=== PATIENT | male | born 1965 | race Caucasian/White ===

== ENCOUNTER → 2017-03-16 | Outpatient (CLI) | payer OTHER ==
[2017-03-16 16:43] LABS: HCT 45.1 % (39.0-53.0); MCH 29.1 pg (25.0-35.0); MCHC 33.2 g/dL (31.0-37.0); MCV 87.6 fL (80.0-100.0); Mean Platelet Volume 8.8; Platelet Count 237 k/uL (150-450); RBC 5.15 m/uL (4.30-5.90); RDW 13.7 % (11.5-15.5); WBC 8.8 k/uL (3.8-10.6)
[2017-03-16 16:44] LABS: Appearance,Urine Clear (Clear); Bacteria,Urine Rare /hpf; Bilirubin,Urine Negative (Negative); Blood,Urine Negative (Negative); Color,Urine Light Yellow; Glucose,Urine (UA) Negative (Negative); Ketones,Urine Negative (Negative); Leukocyte Esterase,Urine Trace (Negative); Nitrite,Urine Negative (Negative); PH, Urine 6.5 (5.0-8.0); Protein,Urine Negative (Negative); Specific Gravity,Urine 1.006 (1.001-1.035); Squamous Epithelial Cell,Urine <1 /hpf (0-4); Urobilinogen,Urine <2.0 mg/dL (<2.0); WBC,Urine 3 /hpf (0-5)
[2017-03-16 16:51] LABS: INR 1.2 (<1.2); Partial Thromboplastin Time 24.9 sec (22.0-30.0); Prothrombin Time 11.3 sec (9.0-12.0)
[2017-03-16 17:19] LABS: ALT 36 U/L (21-72); AST 24 U/L (17-59); Albumin 4.1 g/dL (3.5-5.0); Alkaline Phosphatase 79 U/L (38-126); Anion Gap 11 mmol/L; Blood Urea Nitrogen 16 mg/dL (9-20); Calcium 9.2 mg/dL (8.4-10.2); Carbon Dioxide 25 mmol/L (22-30); Chloride 104 mmol/L (98-107); Glucose 89 mg/dL (74-99); Potassium 4.3 mmol/L (3.5-5.1); Sodium 140 mmol/L (137-145); Total Bilirubin 0.5 mg/dL (0.2-1.3)
== END | disposition home or self-care (01) ==
LOC: LABPAT 15:44
PROVIDERS: ATTEND Orthopaedic Surgery
DX: Z01.818 Encounter for other preprocedural examination (principal); Z01.812 Encounter for preprocedural laboratory examination; M16.12 Unilateral primary osteoarthritis, left hip
CPT/HCPCS: 80053; 81001; 85027; 85610; 85730; 87070; 93005

== ENCOUNTER 2017-03-28 06:26 | Inpatient (IN) | payer OTHER ==
[2017-03-21 18:01] VITALS: BMI 29.5
[~2017-03-28 06:26] MED LIST: ACETAMINOPHEN TAB 500 MG TAB PO ONE; LACTATED RINGERS 1,000 ML IV SCH; LIDOCAINE 1% 20 ML VIAL (10MG/ML) FOR IV START INTRADERMA PRN; MELOXICAM 7.5 MG TAB PO ONE; ONDANSETRON 4 MG/2 ML VIAL IVP ONE; ROPIVACAINE 246.25 MG, EPINEPHrine 0.5 MG, KETOROLAC 30 MG, cloNIDine HCL/PF 80 MCG, WA... MISCELLANE ONE; TRANEXAMIC ACID 1,000 MG in SODIUM CHLORIDE 0.9% 50 ML IVPB ONE; ceFAZolin IN SWFI 2 GM/20 ML SYRINGE IVP ONE
[2017-03-28] MEDS: HYDROmorphone 0.5 MG/0.5 ML SYRINGE IVP PRN ×3 (07:12→11:18)
[2017-03-28] MEDS ORDERED: HYDROcodone/APAP 5-325MG 1 EACH TAB PO PRN (07:30)
[2017-03-28] MEDS ORDERED: NALOXONE 0.4 MG/ML 1 ML VIAL IV PRN (07:30)
[2017-03-28] MEDS ORDERED: HYDROmorphone 4 MG/ML 1 ML SYRINGE IVP PRN ×3 (07:30)
[2017-03-28] MEDS ORDERED: MAGNESIUM HYDROXIDE 2,400 MG/10 ML CUP PO PRN (07:30)
[2017-03-28] MEDS ORDERED: hydrOXYzine PAMOATE 25 MG CAP PO PRN (07:30)
[2017-03-28] MEDS ORDERED: DIAZEPAM 5 MG TAB PO PRN ×2 (07:30)
[2017-03-28] MEDS ORDERED: ePHEDrine SULFATE/0.9% NACL/PF 50 MG/5 ML SYRINGE IV ONE (07:32)
[2017-03-28] MEDS ORDERED: PROPOFOL 10 MG/ML 20 ML VIAL IV ONE (07:32)
[2017-03-28] MEDS ORDERED: SODIUM CHLORIDE 0.9% 100 ML BAG ONE (07:32)
[2017-03-28] MEDS ORDERED: SUCCINYLCHOLINE CHLORIDE 100 MG/5 ML SYR IV ONE (07:32)
[2017-03-28] MEDS ORDERED: ROCURONIUM BROMIDE 10 MG/ML 10 ML VIAL IV ONE (07:32)
[2017-03-28] MEDS ORDERED: SODIUM CHLORIDE 0.9% IRRIG 1,000 ML BTL IRRIGATION ONE (07:32)
[2017-03-28] MEDS ORDERED: GLYCOPYRROLATE 0.2 MG/ML 2 ML VIAL ONE (07:32)
[2017-03-28] MEDS ORDERED: fentaNYL (PF) 50 MCG/ML 2 ML AMP ONE (07:32)
[2017-03-28] MEDS ORDERED: PHENYLEPHRINE-0.9% NACL SYG 1 MG/10 ML SYRINGE ONE (07:32)
[2017-03-28] MEDS ORDERED: TRANEXAMIC ACID 1,000 MG/10 ML VIAL ONE (07:32)
[2017-03-28] MEDS ORDERED: HYDROmorphone (PF) 1 MG/ML ONE (07:32)
[2017-03-28] MEDS ORDERED: LIDOCAINE 1% INJ 10MG/ML (20 ML MDV) ONE (07:32)
[2017-03-28] MEDS ORDERED: ceFAZolin 1,000 MG in SODIUM CHLORIDE 0.9% 1,000 ML IRRIGATION ONE (07:32)
[2017-03-28] MEDS ORDERED: MIDAZOLAM 2 MG/2 ML VIAL ONE (07:32)
[2017-03-28] MEDS ORDERED: NEOSTIGMINE 1 MG/ML 10 ML VIAL ONE (07:32)
[2017-03-28] MEDS ORDERED: HEPARIN SODIUM,PORCINE 10,000 UNIT/ML 1 ML VIAL ONE (07:32)
[2017-03-28] MEDS ORDERED: LACTATED RINGERS 1,000 ML IV ONE (08:45)
--- NOTE | 2017-03-28 09:11 | P.OP ---
Date of Procedure: 03/28/17 Preoperative Diagnosis: Severe osteoarthritis left hip Postoperative Diagnosis: Severe osteoarthritis left hip Procedure(s) Performed: Left total hip arthroplasty with a direct anterior approach Implants: Swartz and nephew Polarstem size 3 standard Swartz & Nephew R3, 3 hole acetabular shell, 52 mm Swartz & Nephew reflection 6.5 mm cancellus screw, 20 mm 2 Swartz & Nephew R3, XLPE 20 acetabular liner Swartz & Nephew Oxinium femoral head 36 m, +0 All components were press-fit. The articulation is Oxinium on polyethylene. Anesthesia: GETA, spinal Surgeon: Timo Gill Pulmonary Specialist #1: Kamryn Garland Estimated Blood Loss (ml): 300 (122 mL returned with Cell Saver) Pathology: other (Femoral head) Condition: stable Disposition: PACU Indications for Procedure: After failure of conservative treatment we discussed the surgical and nonsurgical treatment options at length. Patient wishes to proceed with a total hip arthroplasty with a direct anterior approach. Complications specific to this procedure were discussed at length, including but not limited to infection, leg length discrepancy, dislocation, and nerve injury. Patient is aware of all these complications and informed consent was obtained Operative Findings: The operative findings are consistent with severe osteoarthritis of the left hip Description of Procedure: Patient was seen and evaluated in the preoperative area, consent was reviewed, and the surgical site was marked with a skin marker. Patient was then brought to the operating room and given prophylactic antibiotics intravenously. 1 g of Tranexamic acid was also given. A spinal anesthetic was administered by the anesthesia department. It appeared that the spinal anesthetic did not fully function, so a general anesthetic was administered. The patient was then placed on the [place] table with the bony prominences well-padded. The hip area was then prepped and draped in usual sterile fashion. A universal timeout was then performed, which confirmed the patient's name, surgical site, ALLERGIES, and procedure being performed. Next the incision site was located at 1 cm distal and 1 cm lateral to the anterior superior iliac spine. The skin and subcutaneous tissues were sharply incised. Incision was carefully dissected down to the fascia overlying the tensor fascia patrick muscle. This fascia was then incised in line with the incision. Next, using blunt finger dissection, the tensor fascia patrick muscle was dissected off its investing fascia. The muscle was then carefully retracted laterally with a cobra retractor over the lateral neck of the femur. Next, the circumflex vessels were identified and cauterized using the AquaMantis device. The anterior hip capsule was then exposed. The capsule was then opened and an inverted T fashion. Cobra retractors were then placed intracapsularly. The proximal femur was then visualized. The femoral neck was then osteotomized appropriate level above the lesser trochanter. Small amount of traction was placed with the [place] table. A small wedge of bone was then removed from the remaining femoral head. Next, using a corkscrew femoral head was easily removed from the acetabulum. On gross visual inspection, the femoral head had complete loss of articular cartilage in multiple periarticular osteophytes. Attention was then turned to the acetabulum. the acetabulum was exposed and any remaining labrum was excised. Sequential reaming of the acetabulum was performed using fluoroscopic guidance. When the appropriate size was reached, a trial was then placed. The position and fit of the trial was checked with fluoroscopy. The trial was then removed. Then, using fluoroscopic guidance, the final implant was impacted at 20 of anteversion and 40 of abduction, and fully seated in the acetabulum. 2 screws were then placed in the acetabulum. Again fluoroscopy was used to check position of the screws. Next, the liner was then impacted, with a 20 elevated liner located in the anterior superior quadrant. Component locking was confirmed. Attention was then directed to the femur. With the aid of the [place] table, the femur was externally rotated to approximately 130, extended, and abducted under the opposite leg. A side hook was then placed under the proximal femur, and the side hook elevator was used to elevate the proximal femur. Retractors were then placed. A capsular release was performed, as well as a release of the conjoined tendon, which afforded excellent visualization of the proximal femur. Next, a box osteotome was used to lateralize the proximal femur. A hand worker was then used to locate the femoral canal. Sequential broaching was then performed with appropriate size which afforded excellent fixation in the proximal femur. A trial was then placed with appropriate head and neck, and the hip was gently reduced with the aid of the [place] table. Fluoroscopy was then used to check position of the components, as well as to ensure equal leg lengths. The hip was then gently dislocated and the trials were then removed. Final implants were then impacted and the hip was again reduced. Final fluoroscopic x-rays confirmed that the components were in anatomic position, as well as equal leg lengths. The hip was also taken through range of motion, and found to be stable. The hip was then copiously irrigated with antibiotic solution with pulsatile lavage. The hip was then irrigated with Irrisept solution. The soft tissues were then injected with a ropivacaine solution, which consisted of 246.25 mg of ropivacaine, 0.5 mg of epinephrine, 30 mg of Toradol, 80 g of clonidine, and 48.45 mL of sterile water, for a total of 100 mL of fluid injected. A second dose of 1 g of Tranexamic acid was also given. the fascia was then closed with 2-0 strata fix suture. The subcutaneous tissue was closed with 3-0 Vicryl. The subcuticular tissue was closed with 3-0 strata fix suture. The skin was then closed with Dermabond glue and a sterile silver dressing. The patient was then transferred to the recovery room in stable condition. The housing assistant property manager AUDREY Fish was required due to the complexity of surgery, and the need for skilled surgical garment assembly supervisor for positioning, draping, exposure, retraction, and closure of the wound.
[2017-03-28 09:36] VITALS: RESP 16
--- NOTE | 2017-03-28 09:41 | XR ---
Fluoroscopy History: LEFT ANTERIOR HIP REPLACEMENT 42 SEC FLUORO, 2 IMAGES SCANNED INTO PACS. Appropriate alignment.
[2017-03-28] MEDS: ONDANSETRON 4 MG/2 ML VIAL IVP PRN ×2 (13:02→20:01)
[2017-03-28] MEDS: SODIUM CHLORIDE 0.9% 1,000 ML IV SCH (15:20)
[2017-03-28] MEDS: ASPIRIN 325 MG TAB PO SCH ×2 (15:21→20:13)
[2017-03-28] MEDS: ceFAZolin IN SWFI 2 GM/20 ML SYRINGE IVP SCH (16:29)
[2017-03-28] MEDS: HYDROcodone/APAP 5-325MG 1 EACH TAB PO PRN ×2 (16:30→18:24)
[2017-03-28] MEDS ORDERED: KETOROLAC 30 MG/ML 1 ML VIAL IVP PRN (19:40)
[2017-03-28] MEDS ORDERED: SENNOSIDES-DOCUSATE SODIUM 1 EACH TAB PO SCH (21:00)
[2017-03-29] MEDS: ceFAZolin IN SWFI 2 GM/20 ML SYRINGE IVP SCH (01:19)
[2017-03-29] MEDS: SODIUM CHLORIDE 0.9% 1,000 ML IV SCH (01:19)
--- NOTE | 2017-03-29 02:16 | CONS ---
CONSULTATION DATE OF CONSULTATION: 03/28/17. REASON FOR CONSULTATION: Medical management, requested by Dr. Gill. CONSULTATION: This is a 51-year-old patient who follows with Dr. Ratliff. The patient has undergone a left total hip arthroplasty. The patient's pain has been coming on for quite some time, not controlled with the regular pain medicine. Both with exertion limited to the left hip. Finally he decided to proceed with surgical procedure. The patient has also got some pain in the left knee. Other chronic stable medical conditions include GERD and pain in the left knee. Postop patient had nausea. No chest pain or short of breath. REVIEW OF SYSTEMS: CONSTITUTIONAL: None. HEENT none. Respiratory none. Cardiovascular none. Gastrointestinal heartburn, nausea. Genitourinary none. Musculoskeletal pain also the left knee. Dermatological, hematologic, lymphatic none. Psychiatry none. Neurological none. PAST HISTORY: GERD, osteoarthritis, left hip, left knee. PAST SURGICAL HISTORY: repair, liposuction. SOCIAL HISTORY: Does not smoke. Alcohol occasionally. Lives with kids. 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 FAMILY HISTORY: Of aneurysm. HOME MEDICATIONS: Ibuprofen 2-400 q.6h p.r.n., Tylenol 500 q.6h p.r.n., 1 tab p.o. daily. ALLERGIES: None. PHYSICAL EXAMINATION: Temperature 98.2, pulse 85, respiratory 16, blood pressure 129/85, pulse ox 94% on room air. General appearance: Average build, lying in bed comfortable. Eyes pupils equal. Conjunctivae normal. HEENT: Oral cavity normal. Neck JVD not raised. Mass not palpable. Respiratory effort: Lungs are clear. Cardiovascular 1st and second sounds normal. No edema. ABDOMEN: Soft, nontender. Liver and spleen not palpable. Lymphatic: No lymph nodes palpable. PSYCHIATRY: Alert and oriented x3. Mood and affect normal. Neurological: Pupils equal. Cranial nerves grossly intact. Power and sensation grossly intact. Extremities dressing over the left hip. INVESTIGATIONS: Preop blood work from 03/16 shows a white count 8.8, hemoglobin 15, potassium 4.3. BUN creatinine is normal. ASSESSMENT: 1. Left total hip arthroplasty. 2. Possible osteoarthritis of the left knee. 3. Gastroesophageal reflux disease. 4. Nausea side effect of pain medication postoperatively. PLAN: Patient is to get Zofran. Patient getting aspirin for DVT prophylaxis. Otherwise, pain control is in place. Care was discussed with the patient. Questions were answered. The patient should follow up with Dr. Ratliff upon discharge. Thank you Dr. Gill. Copy to Gaudencio. PEYTON / RAFFAELEN: [id number] /
[2017-03-29 03:19] VITALS: TEMP 97.6
[2017-03-29] MEDS: HYDROcodone/APAP 5-325MG 1 EACH TAB PO PRN ×2 (07:15→13:37)
--- NOTE | 2017-03-29 08:19 | P.DS ---
Providers Date of admission: 03/28/17 06:26 Expected date of discharge: 03/29/17 Attending physician: Timo Gill Consults: 03/28/17 07:30 Consult Physician Routine Consulting Provider: Rodney Ramsay Consult Reason/Comments: medical management Do you want consulting provider notified?: Yes - Discharge Diagnosis(es) (1) Primary osteoarthritis of left hip Current Visit: Yes Status: Acute (2) S/P total hip arthroplasty Current Visit: Yes Status: Acute Hospital Course: This is a 51-year-old male with known history of degenerative arthritis of the left hip. The patient presents for evaluation. After discussion and consideration patient elects to proceed with total hip arthroplasty. The patient is seen preoperatively by Dr. Gill and cleared for surgery. Patient is admitted to [facility] on 03/28/2017 for total hip arthroplasty. The procedures performed without complication or sequelae. The patient is doing well postoperatively. Labs and vital signs are stable on day of discharge. On day of discharge patient's hip incision is healing well. There is minimal erythema. There is no drainage noted at this time. There is minimal soft tissue swelling to the hip and thigh. Patient has full foot and ankle motion without difficulty or pain. Neurovascular status to the left lower extremity is intact. Patient is discharged home in good condition. Please see med rec for accurate list of home medications. Plan - Discharge Summary Discharge Rx Participant: Yes New Discharge Prescriptions: New Aspirin 325 mg PO BID #60 tab HYDROcodone/APAP 5-325MG [[place] 5-325] 1 - 2 tab PO Q4-6H PRN #90 tab PRN Reason: Pain Sennosides [Senokot] 1 tab PO BID #60 tablet No Action Acetaminophen Tab [Tylenol Tab] 500 mg PO Q6H PRN PRN Reason: Pain T-Rise 1 tab PO DAILY Ibuprofen 200 - 400 mg PO Q6H PRN PRN Reason: Pain Discharge Medication List Acetaminophen Tab [Tylenol Tab] 500 mg PO Q6H PRN 03/21/17 [History] Ibuprofen 200 - 400 mg PO Q6H PRN 03/21/17 [History] T-Rise 1 tab PO DAILY 03/21/17 [History] Aspirin 325 mg PO BID #60 tab 03/29/17 [Rx] HYDROcodone/APAP 5-325MG [[place] 5-325] 1 - 2 tab PO Q4-6H PRN #90 tab 03/29/17 [ Rx] Sennosides [Senokot] 1 tab PO BID #60 tablet 03/29/17 [Rx] Follow up Appointment(s)/Referral(s): Timo Gill DO [Doctor of Osteopathic Medicine] - 2 Weeks Activity/Diet/Wound Care/Special Instructions: Weightbearing as tolerated with walker Leave dressing intact. Dressing may be removed by home care nurse in 7 days, . May shower with dressing on. Follow-up with [facility] in 2 weeks, please call with any questions or concerns [phone] Discharge Disposition: HOME WITH HOME HEALTH SERVICES
[2017-03-29 08:27] LABS: Basophils % (A) 0 %; Eosinophils % (A) 0 %; HCT 41.6 % (39.0-53.0); HGB 13.3 gm/dL (13.0-17.5); Lymphocytes # (A) 1.3 k/uL (1.0-4.8); Lymphocytes % (A) 7 %; MCH 29.2 pg (25.0-35.0); MCV 91.3 fL (80.0-100.0); Mean Platelet Volume 8.2; Monocytes # (A) 0.9 k/uL (0-1.0); Monocytes % (A) 5 %; Neutrophils # (A) 16.3 k/uL (1.3-7.7); Neutrophils % (A) 87 %; Platelet Count 207 k/uL (150-450); RBC 4.56 m/uL (4.30-5.90); RDW 12.6 % (11.5-15.5); WBC 18.7 k/uL (3.8-10.6)
[2017-03-29] MEDS ORDERED: MELOXICAM 7.5 MG TAB PO SCH (09:00)
[2017-03-29] MEDS ORDERED: INFLUENZA VACCINE (6 MOS+) 60 MCG/0.5 ML SYRINGE IM ONE (10:13)
[2017-03-29] MEDS: ASPIRIN 325 MG TAB PO SCH (10:15)
[2017-03-29 10:23] VITALS: BP 129/82; PULSE 65
[2017-03-29] MEDS ORDERED: HYDROmorphone 2 MG TAB PO PRN ×2 (15:24→15:25)
[2017-03-29] MEDS ORDERED: HYDROmorphone 4 MG TABLET PO PRN (15:25)
--- NOTE | 2017-03-30 02:59 | PN ---
PROGRESS NOTE DATE OF SERVICE: 03/29/17 PRESENTING COMPLAINT: Left total hip arthroplasty. INTERVAL HISTORY: The patient is status post left hip surgery. Pain is better controlled. No nausea, vomiting, did work with therapy. Tolerating a diet, up and about. REVIEW OF SYSTEMS: Done for constitutional, cardiovascular, GI, pulmonary, relevant findings as above. CURRENT MEDICATIONS: Reviewed. EXAMINATION: Temperature 97.6, pulse 55, respiration 16, blood pressure 129/82, pulse ox 96% on room air. General appearance: Sitting up in a chair, comfortable. Eyes pupils are equal. Conjunctivae normal. HEENT external appearance of nose and ears normal. Oral cavity normal. Neck JVD not raised. Mass not palpable. Respiratory effort lungs are clear. Cardiovascular 1st and 2nd sounds normal. No edema. ABDOMEN: Soft, nontender. Liver and spleen not palpable. Psychiatry: Alert and oriented x3. Mood and affect normal. INVESTIGATIONS: White count 8.7, hemoglobin 13.3. ASSESSMENT: 1. Left total hip arthroplasty. 2. Possible osteoarthritis of the left knee. 3. Gastroesophageal reflux disease. 4. Nausea side effect of pain medication, improved. 5. Leukocytosis likely reaction from postop. No clinical evidence of infection. Incision healing well per surgery. PLAN: Continue current medication and treatment plan. Patient should follow up with family doctor upon discharge. Thank you. PEYTON / MICHAEL: [id number] /
== END 2017-03-29 16:10 | disposition home health service (06) | DRG 470 ==
LOC: 2ORMAIN 06:26 → 3SUR 13:53
PROVIDERS: ADMIT Orthopaedic Surgery; ATTEND Orthopaedic Surgery
PROC: 30233N0 Transfusion of Autologous Red Blood Cells into Peripheral Vein, Percutaneous Approach (ICD-10-PCS; 2017-03-28)
PROC: 0SRB06A Replacement of Left Hip Joint with Oxidized Zirconium on Polyethylene Synthetic Substitute, Uncemented, Open Approach (ICD-10-PCS; principal; 2017-03-28 07:30)
DX: M16.12 Unilateral primary osteoarthritis, left hip (principal); K21.9 Gastro-esophageal reflux disease without esophagitis; M25.752 Osteophyte, left hip; M17.12 Unilateral primary osteoarthritis, left knee; R11.0 Nausea; T40.2X5A Adverse effect of other opioids, initial encounter; Z79.899 Other long term (current) drug therapy; Z79.1 Long term (current) use of non-steroidal anti-inflammatories (NSAID); Z86.59 Personal history of other mental and behavioral disorders; Z87.19 Personal history of other diseases of the digestive system; Z83.3 Family history of diabetes mellitus; Z82.49 Family history of ischemic heart disease and other diseases of the circulatory system; Z83.2 Family history of diseases of the blood and blood-forming organs and certain disorders involving the immune mechanism; Z87.891 Personal history of nicotine dependence
CPT/HCPCS: 73501; 85025; 86850; 86891; 86900; 86901; 88300; 90686

== ENCOUNTER → 2021-11-25 | Outpatient (CLI) | payer OTHER | END | disposition home or self-care (01) | LOC: LABWHC1 09:58 | PROVIDERS: ATTEND Surgery Plastic and Reconstructive Surgery | DX: I11.9 Hypertensive heart disease without heart failure (principal); R00.1 Bradycardia, unspecified | CPT/HCPCS: 36415; 93005 ==